=== PATIENT | female | born 1970 | race Caucasian/White ===

== ENCOUNTER 2016-07-21 16:54 | Observation (INO) | payer SELFPAY ==
[~2016-07-21] VITALS: Ht 166.4 cm; Wt 65.4 kg
--- NOTE | 2016-07-21 17:16 | PHYS DOC ---
Adult General Chief Complaint Chief Complaint: CHEST PAIN HPI HPI This 46-year-old lady presents with chest pain.. He states that she's had chest pain off-and-on for the past week. Pain goes from her anterior shoulder to her anterior shoulder at the dental pain across her chest nothing makes it better and nothing makes it worse. These last for minutes daily and comes back every 3 minutes having 3 or 4 episodes of these daily. She states that she had a heart catheterization a year ago after she failed a stress test and echo. She states that the heart catheterization showed no significant blockage and she did not require stents. Review of Systems Review of Systems Constitutional: Denies fever or chills [] Eyes: Denies change in visual acuity, redness, or eye pain [] HENT: Denies nasal congestion or sore throat [] Respiratory: Denies cough or shortness of breath [] Cardiovascular: No additional information not addressed in HPI [] GI: Denies abdominal pain, nausea, vomiting, bloody stools or diarrhea [] : Denies dysuria or hematuria [] Musculoskeletal: Denies back pain or joint pain [] Integument: Denies rash or skin lesions [] Neurologic: Denies headache, focal weakness or sensory changes [] Endocrine: Denies polyuria or polydipsia [] Physical Exam Physical Exam Constitutional: Well developed, well nourished, no acute distress, non-toxic appearance. [] HENT: Normocephalic, atraumatic, bilateral external ears normal, oropharynx moist, no oral exudates, nose normal. [] Eyes: PERRLA, EOMI, conjunctiva normal, no discharge. [] Neck: Normal range of motion, no tenderness, supple, no stridor. [] Cardiovascular:Heart rate regular rhythm, no murmur [] Lungs & Thorax: Bilateral breath sounds clear to auscultation [] Abdomen: Bowel sounds normal, soft, no tenderness, no masses, no pulsatile masses. [] Skin: Warm, dry, no erythema, no rash. [] Back: No tenderness, no CVA tenderness. [] Extremities: No tenderness, no cyanosis, no clubbing, ROM intact, no edema. [] Neurologic: Alert and oriented X 3, normal motor function, normal sensory function, no focal deficits noted. [] Psychologic: Affect normal, judgement normal, mood normal. [] EKG EKG Initial EKG interpretation by Dr. Saavedra [] Radiology/Procedures Radiology/Procedures [] Course & Med Decision Making Course & Med Decision Making Pertinent Labs and Imaging studies reviewed. (See chart for details) Addendum by Dr. Chris Dugan M.D.: I took over care of patient at 1800. Please refer to Dr. Tamayo's documentation for initial encounter. This patient was treated with fentanyl and aspirin for pain. The patient continued to have 7 out of 10 chest pain. Patient has risk factors for possible acute coronary syndrome that include hypertension, hyperlipidemia, and tobacco use. Patient also has family history of heart disease including her biological sister. Patient's lab work was negative. Patient has no follow-up secured at this time. The patient is appropriate for admission under observation care to rule out acute coronary syndrome. I spoke with Dr. Merrill who accepted care of patient in hospital. A consult was placed to Dr. Jiménez of cardiology who will follow patient in hospital. [] Dragon Disclaimer Dragon Disclaimer This chart was dictated in whole or in part using Voice Recognition software in a busy, high-work load, and often noisy Emergency Department environment. It may contain unintended and wholly unrecognized errors or omissions. Departure Departure: Impression: Primary Impression: Chest pain Disposition: ADMITTED INPATIENT Admitting Physician: Tacho Merrill Condition: STABLE AVERY TAMAYO MD Jul 21, 2016 17:16 CHRIS DUGAN MD Jul 21, 2016 19:40
--- NOTE | 2016-07-21 17:37 | EKG ---
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 RI6.01 Unconfirmed report No previous ECG available for comparison Electronically Signed On 07-25-2016 10:37:57 CDT by Skyler Logan
[2016-07-21 17:54] LABS: BASO # 0.1 x10^3/uL (0.0-0.2); BASO % 1 % (0-3); EOS # 0.1 x10^3/uL (0.0-0.7); EOS % 1 % (0-3); HEMATOCRIT 45.4 % (36.0-47.0); HEMOGLOBIN 15.3 g/dL (12.0-15.5); LYMPH # 2.3 x10^3/uL (1.0-4.8); LYMPH % 19 % (24-48); MEAN CORPUSCULAR HEMOGLOBIN 31 pg (25-35); MEAN CORPUSCULAR HGB CONC 34 g/dL (31-37); MEAN CORPUSCULAR VOLUME 92 fL (79-100); MONO # 0.9 x10^3/uL (0.0-1.1); MONO % 8 % (0-9); NEUT # 8.5 x10^3uL (1.8-7.7); NEUT % 71 % (31-73); PLATELET COUNT 204 x10^3/uL (140-400); RED BLOOD COUNT 4.94 x10^6/uL (3.50-5.40); RED CELL DISTRIBUTION WIDTH 13.1 % (11.5-14.5)
[2016-07-21] MEDS ORDERED: IV NORMAL SALINE 1,000ML 1,000 ML IV SCH (18:00)
[2016-07-21 18:06] LABS: ALBUMIN 3.9 g/dL (3.4-5.0); ALBUMIN/GLOBULIN RATIO 1.1 (1.0-1.7); CALCIUM 9.2 mg/dL (8.5-10.1); CREATININE 0.9 mg/dL (0.6-1.0); GFR 67.4; POTASSIUM 3.8 mmol/L (3.5-5.1); TOTAL BILIRUBIN 0.5 mg/dL (0.2-1.0); TOTAL PROTEIN 7.5 g/dL (6.4-8.2)
[2016-07-21] MEDS ORDERED: ONDANSETRON PF 4 MG/2 ML VIAL. IV PRN (18:45)
[2016-07-21] MEDS ORDERED: ACETAMINOPHEN 325 MG TABLET PO PRN (18:45)
[2016-07-21] MEDS ORDERED: ASPIRIN 325 MG TABLET PO ONE (19:45)
[2016-07-21] MEDS: IV NORMAL SALINE 1,000ML 1,000 ML IV SCH (20:08)
[2016-07-21] MEDS: fentaNYL PF 100 MCG/2 ML VIAL IV PRN ×2 (20:09→22:49)
[2016-07-21 20:39] VITALS: BP_SYST 120; BP_SYST 136; BP_DIAS 72; BP_DIAS 89
[2016-07-21] MEDS ORDERED: LISI10TA2 PO (21:16)
[2016-07-21 23:23] VITALS: BP 134/90
[2016-07-22] MEDS: fentaNYL PF 100 MCG/2 ML VIAL IV PRN ×2 (04:26→11:57)
[2016-07-22] MEDS: IV NORMAL SALINE 1,000ML 1,000 ML IV SCH (04:26)
[2016-07-22 04:31] VITALS: BP 102/66
[2016-07-22 06:27] LABS: BASO # 0.1 x10^3/uL (0.0-0.2); BASO % 1 % (0-3); EOS # 0.2 x10^3/uL (0.0-0.7); EOS % 2 % (0-3); HEMATOCRIT 41.5 % (36.0-47.0); HEMOGLOBIN 13.9 g/dL (12.0-15.5); LYMPH # 2.2 x10^3/uL (1.0-4.8); LYMPH % 22 % (24-48); MEAN CORPUSCULAR HEMOGLOBIN 31 pg (25-35); MEAN CORPUSCULAR HGB CONC 33 g/dL (31-37); MEAN CORPUSCULAR VOLUME 93 fL (79-100); MONO # 1.1 x10^3/uL (0.0-1.1); MONO % 10 % (0-9); NEUT # 6.7 x10^3uL (1.8-7.7); NEUT % 65 % (31-73); PLATELET COUNT 184 x10^3/uL (140-400); RED BLOOD COUNT 4.47 x10^6/uL (3.50-5.40); RED CELL DISTRIBUTION WIDTH 13.3 % (11.5-14.5); WHITE BLOOD COUNT 10.3 x10^3/uL (4.0-11.0)
[2016-07-22 06:28] LABS: CALCIUM 7.9 mg/dL (8.5-10.1); CREATININE 0.8 mg/dL (0.6-1.0); GFR 77.2
--- NOTE | 2016-07-22 08:01 | RAD ---
Portable chest, 07/21/2016: History: Chest pain The heart size and pulmonary vascularity are normal. No pulmonary infiltrates are seen. There is no evidence of pleural fluid. IMPRESSION: No acute cardiopulmonary abnormality is detected.
[2016-07-22] MEDS ORDERED: LISINOPRIL 10 MG TABLET PO SCH (09:00)
--- NOTE | 2016-07-22 09:23 | PDOC2 ---
SOBEIDA SAMANIEGO INVASIVE CARDIOLOGIST 07/22/16 0923: CONSULT Date of Admission DATE: 07/22/16 TIME: 09:18 Reason for Consult: cp Problem List Problems Medical Problems: (1) Chest pain Status: Acute History of Present Illness Ms Hayes is a 46 year old female who presented with complaints of chest pain. She reports intermittent chest pain, described as sharp and lasting a few minutes at a time. Discomfort has been progressive over the last week. She reports associated shoulder pain, dyspnea and diaphoresis. She reports increase in discomfort with exertion, deep inspiration and some what with movement. She has taken ibuprofen without improvement but does report some improvement with NTG, which she took at home. She underwent cardiac cath about 1 year ago in [place] which was reportedly normal, however was left on Ranexa which she states helped her symptoms. She reports Ranexa was discontinued during an ER visit about 4 months ago. She reports exercising regularly doing situps and is very active, walking alot at work. She denies palpitations, lightheadedness, congestive symptoms or syncope. She also reports recent weight loss of 40 lbs which allowed her to reduce her antihypertensive medications. 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 Current Medications Current Medications Sodium Chloride 1,000 ml @ 1,000 mls/hr Q1H IV Last administered on 07/21/16 18:10; Start 07/21/16 at 18:00; Stop 07/21/16 at 18:59; Status DC Ondansetron HCl (Zofran) 4 mg PRN Q4HRS PRN IV NAUSEA/VOMITING; Start 07/21/16 at 18:45; Stop 07/22/16 at 18:44 Fentanyl Citrate (Fentanyl 2ml Vial) 50 mcg PRN Q2HR PRN IV PAIN Last administered on 07/22/16 04:26; Start 07/21/16 at 18:45; Stop 07/22/16 at 18:44 Sodium Chloride 1,000 ml @ 100 mls/hr Q10H IV Last administered on 07/22/16 04:26; Start 07/21/16 at 18:43; Stop 07/22/16 at 18:42 Acetaminophen (Tylenol) 650 mg PRN Q4HRS PRN PO FEVER; Start 07/21/16 at 18:45 ; Stop 07/22/16 at 18:44 Aspirin (Caroline Aspirin) 325 mg 1X ONCE PO Last administered on 07/21/16t 20:07 ; Start 07/21/16 at 19:45; Stop 07/21/16 at 19:46; Status DC Lisinopril (Prinivil) 10 mg DAILY PO ; Start 07/22/16 at 09:00 Active Scripts Active Reported Lisinopril 10 Mg Tablet 10 Mg PO DAILY Allergies: Coded Allergies: codeine (Verified Allergy, Unknown, Nausea and Vomiting, 07/21/16) Review of System as per HPI or negative General: Alert, Oriented X3, Cooperative, No acute distress HEENT: Atraumatic, EOMI, Mucous membr. moist/pink, Other (no carotid bruits) Lungs: Clear to auscultation, Normal air movement Heart: Regular rate, Normal S1, Normal S2, Other (no significant murmurs, no gallops, clicks or rubs) Abdomen: Normal bowel sounds, Soft, No tenderness Extremities: No clubbing, No cyanosis, No edema, Normal pulses Neuro: Normal speech, Strength at 5/5 X4 ext Psych/Mental Status: Mental status NL, Mood NL VITALS Vital Signs Date Time Temp Pulse Resp B/P (MAP) Pulse Ox O2 Delivery O2 Flow Rate FiO2 07/22/16 05:00 18 07/22/16 04:31 97.7 71 102/66 (78) 98 Room Air Labs Laboratory Tests Test 07/21/16 17:40 07/21/16 23:50 07/22/16 06:00 White Blood Count 12.0 x10^3/uL (4.0-11.0) 10.3 x10^3/uL (4.0-11.0) Red Blood Count 4.94 x10^6/uL (3.50-5.40) 4.47 x10^6/uL (3.50-5.40) Hemoglobin 15.3 g/dL (12.0-15.5) 13.9 g/dL (12.0-15.5) Hematocrit 45.4 % (36.0-47.0) 41.5 % (36.0-47.0) Mean Corpuscular Volume 92 fL (79-100) 93 fL (79-100) Mean Corpuscular Hemoglobin 31 pg (25-35) 31 pg (25-35) Mean Corpuscular Hemoglobin Concent 34 g/dL (31-37) 33 g/dL (31-37) Red Cell Distribution Width 13.1 % (11.5-14.5) 13.3 % (11.5-14.5) Platelet Count 204 x10^3/uL (140-400) 184 x10^3/uL (140-400) Neutrophils (%) (Auto) 71 % (31-73) 65 % (31-73) Lymphocytes (%) (Auto) 19 % (24-48) 22 % (24-48) Monocytes (%) (Auto) 8 % (0-9) 10 % (0-9) Eosinophils (%) (Auto) 1 % (0-3) 2 % (0-3) Basophils (%) (Auto) 1 % (0-3) 1 % (0-3) Neutrophils # (Auto) 8.5 x10^3uL (1.8-7.7) 6.7 x10^3uL (1.8-7.7) Lymphocytes # (Auto) 2.3 x10^3/uL (1.0-4.8) 2.2 x10^3/uL (1.0-4.8) Monocytes # (Auto) 0.9 x10^3/uL (0.0-1.1) 1.1 x10^3/uL (0.0-1.1) Eosinophils # (Auto) 0.1 x10^3/uL (0.0-0.7) 0.2 x10^3/uL (0.0-0.7) Basophils # (Auto) 0.1 x10^3/uL (0.0-0.2) 0.1 x10^3/uL (0.0-0.2) D-Dimer (Addie) 0.30 mg/L (0.00-0.50) Sodium Level 139 mmol/L (136-145) 143 mmol/L (136-145) Potassium Level 3.8 mmol/L (3.5-5.1) 4.0 mmol/L (3.5-5.1) Chloride Level 105 mmol/L (98-107) 110 mmol/L (98-107) Carbon Dioxide Level 26 mmol/L (21-32) 28 mmol/L (21-32) Anion Gap 8 (6-14) 5 (6-14) Blood Urea Nitrogen 19 mg/dL (7-20) 22 mg/dL (7-20) Creatinine 0.9 mg/dL (0.6-1.0) 0.8 mg/dL (0.6-1.0) Estimated GFR (Cockcroft-Gault) 67.4 77.2 BUN/Creatinine Ratio 21 (6-20) Glucose Level 88 mg/dL (70-99) 88 mg/dL (70-99) Calcium Level 9.2 mg/dL (8.5-10.1) 7.9 mg/dL (8.5-10.1) Total Bilirubin 0.5 mg/dL (0.2-1.0) Aspartate Amino Transf (AST/SGOT) 13 U/L (15-37) Alanine Aminotransferase (ALT/SGPT) 24 U/L (14-59) Alkaline Phosphatase 92 U/L (46-116) Troponin I Quantitative < 0.017 ng/mL (0-0.055) < 0.017 ng/mL (0-0.055) < 0.017 ng/mL (0-0.055) Total Protein 7.5 g/dL (6.4-8.2) Albumin 3.9 g/dL (3.4-5.0) Albumin/Globulin Ratio 1.1 (1.0-1.7) Images sinus rhythm, non specific st/t abn CXR - no acute abnormality Assessment/Plan 1. chest pain with mixed features - CE neg x 3, no acute EKG abnormalities. 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 ? microvascular disease. Resume Ranexa, aspirin, check lipids. Echo and will request cath report. No MPI if normal cath. resume Ranexa pending cath report. If cath normal consider eval for non cardiac causes to include GERD and radiculopathy as outpatient. 2. hypertension - continue home meds. 3. unk lipids - check FLP 4. tobaccoism - cessation encouraged 5. GERD - PPI Problems: ASHLEIGH HAIDER MD 07/22/16 1434: CONSULT Allergies: Coded Allergies: codeine (Verified Allergy, Unknown, Nausea and Vomiting, 07/21/16) Assessment/Plan Patient seen and examined The patient is feeling better this morning. Chest pain. Patient is ruling out for a myocardial infarction. She is feeling significantly better. Reportedly normal catheterization one year ago. We'll complete rule out for myocardial infarction. Continue present medications. Obtain old catheter report. If the patient remains stable and catheterization report shows no significant disease she may be discharged later today from a cardiac viewpoint Hypertension. Under reasonable control. Continue medical treatment. Gastroesophageal reflux disease. Continue medical treatment. Tobacco abuse. Patient counseled to discontinue smoking. Thank you for allowing us to participate in the care of your patient.. Problems: SOBEIDA SAMANIEGO APRN Jul 22, 2016 09:23 ASHLEIGH HAIDER MD Jul 22, 2016 14:34
[2016-07-22] MEDS ORDERED: PANTOPRAZOLE 40 MG TABLET. PO SCH (10:00)
[2016-07-22] MEDS ORDERED: RANOLAZINE 500 MG TAB.ER.12H PO SCH ×2 (10:15→21:00)
[2016-07-22 12:02] VITALS: BP 153/75
[2016-07-22] MEDS ORDERED: OMEP20CA9 PO (12:42)
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
[2016-07-23] MEDS ORDERED: ASPIRIN ENTERIC COATED 81 MG TABLET.DR. PO SCH (08:00)
== END 2016-07-22 13:08 | disposition home or self-care (01) ==
LOC: ER 16:54 → 1 SOUTH 18:46
PROVIDERS: ADMIT Family Medicine; ATTEND Family Medicine
DX: R07.9 Chest pain, unspecified (principal); I10 Essential (primary) hypertension; K21.9 Gastro-esophageal reflux disease without esophagitis; F41.9 Anxiety disorder, unspecified; F43.9 Reaction to severe stress, unspecified; D72.829 Elevated white blood cell count, unspecified; E78.6 Lipoprotein deficiency; F17.210 Nicotine dependence, cigarettes, uncomplicated; F12.90 Cannabis use, unspecified, uncomplicated; Z79.899 Other long term (current) drug therapy; Z86.19 Personal history of other infectious and parasitic diseases; Z82.49 Family history of ischemic heart disease and other diseases of the circulatory system
CPT/HCPCS: 36415; 71010; 80048; 80053; 80061; 84484; 85027; 85379; 93005; 96361; 96374; 96376; 99285; G0378; J3010; J7030; G0379

== ENCOUNTER 2016-12-07 05:23 | Emergency (ER) | payer SELFPAY ==
[~2016-12-07] VITALS: Ht 154.9 cm; Wt 61.7 kg
[~2016-12-07 05:23] MED LIST: LISI10TA2 PO; OMEP20CA9 PO
[2016-12-07] MEDS ORDERED: AMOX500C PO (05:48)
--- NOTE | 2016-12-07 06:08 | PHYS DOC ---
Past History Past Medical History: Anxiety, GERD, Hypertension, Ovarian Cyst Past Surgical History: Hysterectomy, Other Alcohol Use: Occasionally Drug Use: Marijuana Adult General Chief Complaint Chief Complaint: DENTAL PROBLEM HPI HPI Patient is a 46 year old female who presents with swelling. She states it all started Monday with swelling of her jaw. She saw her dentist on Monday and was started on Augmentin yesterday I&D of her job and she states pain and swelling still continues. She states she's having headaches on the right upper side of her jaw. She states very difficult to chew solid foods she's been eating soft foods and drinking liquids. She feels nauseated but she denies any fevers chills. She denies any neck pain, trouble swallowing or changes in her voice. She states she had a cavity placed in this area one year ago. She denies any trauma to the area. Review of Systems Review of Systems Constitutional: Denies fever or chills [] Eyes: Denies change in visual acuity, redness, or eye pain [] HENT: Denies nasal congestion or sore throat [] Respiratory: Denies cough or shortness of breath [] Cardiovascular: No additional information not addressed in HPI [] GI: Denies abdominal pain, nausea, vomiting, bloody stools or diarrhea [] : Denies dysuria or hematuria [] Musculoskeletal: Denies back pain or joint pain [] Integument: Denies rash or skin lesions [] Neurologic: Denies headache, focal weakness or sensory changes [] Endocrine: Denies polyuria or polydipsia [] Allergies Allergies Allergies Coded Allergies Type Severity Reaction Last Updated Verified codeine Allergy Unknown Nausea and Vomiting 12/07/16 Yes Physical Exam Physical Exam Constitutional: Well developed, well nourished, no acute distress, non-toxic appearance. [] HENT: Normocephalic, atraumatic, bilateral external ears normal, oropharynx moist, no oral exudates, nose normal. Swelling with tenderness to palpation in the right lower external jaw. No David angina appreciated, posterior pharynx clear, no stridor noted. Eyes: PERRLA, EOMI, conjunctiva normal, no discharge. [] Neck: Normal range of motion, no tenderness, supple, no stridor. [] Cardiovascular:Heart rate regular rhythm, no murmur [] Lungs & Thorax: Bilateral breath sounds clear to auscultation [] Abdomen: Bowel sounds normal, soft, no tenderness, no masses, no pulsatile masses. [] Skin: Warm, dry, no erythema, no rash. [] Back: No tenderness, no CVA tenderness. [] Extremities: No tenderness, no cyanosis, no clubbing, ROM intact, no edema. [] Neurologic: Alert and oriented X 3, normal motor function, normal sensory function, no focal deficits noted. [] Psychologic: Affect normal, judgement normal, mood normal. [] Current Patient Data Vital Signs Vital Signs Date Time Temp Pulse Resp B/P (MAP) Pulse Ox O2 Delivery O2 Flow Rate FiO2 12/07/16 05:30 98.7 79 20 98 Room Air EKG EKG [] Radiology/Procedures Radiology/Procedures [address] [address] IMAGING REPORT Signed PATIENT: CHARLIE HALLMAN ACCOUNT: [id number] : 1970 LOCATION: ER AGE: 46 SEX: F EXAM STATUS: REG ER ORD. PHYSICIAN: LATISHA LANDON MD REASON: dental abscess PROCEDURE: CT MAXILLOFACIAL W/CONTRAST Indication dental Cinthia. Soft tissue swelling. Assess for potential underlying abscess. Maxillofacial CT was performed. 75 cc of Omnipaque 300 was administered intravenously. Images were reformatted in the coronal and sagittal planes. There is a lucency surrounding a right lower molar tooth compatible with a dental Cinthia. There is moderate adenopathy in the neck compatible with reactive adenopathy. There is considerable soft tissue swelling over the right mandible and cheek. A discrete abscess, amenable to drainage is not seen. The visualized paranasal sinuses appear normal. Note is made of a small amount of air adjacent to the body of the right mandible. This could be air in an early abscess. Air trapped in the buccal mucosal could account for the appearance. IMPRESSION: Lucency surrounding a right lower molar compatible with a dental cinthia. Soft tissue swelling. A discrete abscess amenable to drainage is not seen. PQRS Compliance Statement: One or more of the following individualized dose reduction techniques were utilized for this examination: 1. Automated exposure control 2. Adjustment of the mA and/or kV according to patient size 3. Use of iterative reconstruction technique DICTATED AND SIGNED BY: NORRIS SMILEY MD DATE: 12/07/16809 CC: LATISHA LANDON MD; PCPJAMESON ~ Impressions: Dental infection Course & Med Decision Making Course & Med Decision Making Pertinent Labs and Imaging studies reviewed. (See chart for details) Patient presents with facial swelling and pain. She isn't having signs of airway compromise, David's angina, trismus or other concerning signs. She received IV fluids, morphine and IV clindamycin. She received a CT scan with contrast of her face which did show a dental caries without any discrete abscess amenable to drainage. I spoke with Dr. Burton nurse with [facility] and informed him of the patient's physical exam, CT scan findings, labs and vitals. She spoke with Dr. Burton would like the patient be discharged with clindamycin and they will contact the patient for follow-up. Patient's being discharged with clindamycin 300 mg every 6 hours for the next 10 days. She's also be discharged with [place] when necessary pain. She is instructed not to drive or drink alcohol when taking this medicine. Return precautions given for facial swelling, troubles breathing, change in her voice, uncontrolled nausea vomiting , or other concerns. Patient's agreeable to plan and being discharged in stable condition at this time. Dragon Disclaimer Dragon Disclaimer This chart was dictated in whole or in part using Voice Recognition software in a busy, high-work load, and often noisy Emergency Department environment. It may contain unintended and wholly unrecognized errors or omissions. Departure Departure: Impression: Primary Impression: Dental infection Disposition: 01 HOME, SELF-CARE Condition: STABLE Referrals: PCPJAMESON (PCP) GONZALES EM DMD Patient Instructions: Dental Caries Additional Instructions: The CAT scan did not show any areas of abscess needs to be drained. Your blood work also did not show any acute abnormalities. You felt better after Zofran for nausea and IV fluids. You will also given an IV dose of antibiotics called clindamycin. I spoke with the oral maxillofacial surgeon's office and they will call you today for follow-up appointment. You will need take a different antibiotics for the next 10 days. You can also take [place] which is a narcotic pain medicine for pain and discomfort. Please don't drink alcohol or drive or taking this medicine as it can impair judgment and make you sleepy. For nausea you can take Zofran as directed. Return the ER for uncontrolled nausea, vomiting , uncontrolled pain, trouble swallowing, breathing or changes in your voice, or any other concerns. Scripts Ondansetron (ZOFRAN ODT) 4 Mg Tab.rapdis 1 TAB SL Q8HRS Y for NAUSEA/VOMITING, #8 TAB Prov: LATISHA LANDON MD 12/07/16 Hydrocodone Bit/Acetaminophen (NORCO 5-325 TABLET) 1 Each Tablet 1-2 TAB PO PRN Q6HRS Y for PAIN, #20 TAB 0 Refills Prov: LATISHA LANDON MD 12/07/16 Clindamycin Hcl (CLINDAMYCIN HCL) 300 Mg Capsule 1 CAP PO Q6HRS, #40 CAP Prov: LATISHA LANDON MD 12/07/16 LATISHA LANDON MD Dec 07, 2016 06:08
[2016-12-07] MEDS ORDERED: MORPHINE SULFATE 4 MG/ML DISP.SYRIN. ONE ×3 (06:14→07:47)
[2016-12-07] MEDS ORDERED: IV NORMAL SALINE 1,000ML 1,000 ML IV ONE (06:30)
[2016-12-07] MEDS ORDERED: ONDANSETRON PF 4 MG/2 ML VIAL. IV ONE (06:30)
[2016-12-07] MEDS: MORPHINE SULFATE 4 MG/ML DISP.SYRIN. IV/SQ PRN ×3 (06:36→07:52)
[2016-12-07] MEDS ORDERED: CONTRAST GIVEN MC PRN (06:45)
[2016-12-07] MEDS ORDERED: IOHEXOL 300 MG/ML 75 ML VIAL. ONE (06:57)
[2016-12-07] MEDS ORDERED: IOHEXOL 300 MG/ML 75 ML VIAL. IV ONE (07:00)
[2016-12-07 07:05] LABS: BASO # 0.1 x10^3/uL (0.0-0.2); BASO % 1 % (0-3); EOS # 0.1 x10^3/uL (0.0-0.7); EOS % 1 % (0-3); HEMATOCRIT 45.6 % (36.0-47.0); HEMOGLOBIN 15.7 g/dL (12.0-15.5); LYMPH # 1.4 x10^3/uL (1.0-4.8); LYMPH % 11 % (24-48); MEAN CORPUSCULAR HEMOGLOBIN 31 pg (25-35); MEAN CORPUSCULAR HGB CONC 35 g/dL (31-37); MEAN CORPUSCULAR VOLUME 91 fL (79-100); MONO # 1.2 x10^3/uL (0.0-1.1); MONO % 9 % (0-9); NEUT # 10.8 x10^3uL (1.8-7.7); NEUT % 80 % (31-73); PLATELET COUNT 243 x10^3/uL (140-400); RED CELL DISTRIBUTION WIDTH 12.7 % (11.5-14.5); WHITE BLOOD COUNT 13.5 x10^3/uL (4.0-11.0)
[2016-12-07 07:08] LABS: ALBUMIN 3.7 g/dL (3.4-5.0); ALBUMIN/GLOBULIN RATIO 0.9 (1.0-1.7); CALCIUM 9.2 mg/dL (8.5-10.1); CREATININE 0.8 mg/dL (0.6-1.0); GFR 77.2; POTASSIUM 4.2 mmol/L (3.5-5.1); TOTAL BILIRUBIN 0.5 mg/dL (0.2-1.0); TOTAL PROTEIN 7.8 g/dL (6.4-8.2)
[2016-12-07] MEDS ORDERED: CLINDAMYCIN 900MG PREMIX 50 ML IV ONE ×2 (07:21→07:40)
--- NOTE | 2016-12-07 08:22 | RAD ---
Indication dental Mj. Soft tissue swelling. Assess for potential underlying abscess. Maxillofacial CT was performed. 75 cc of Omnipaque 300 was administered intravenously. Images were reformatted in the coronal and sagittal planes. There is a lucency surrounding a right lower molar tooth compatible with a dental Mj. There is moderate adenopathy in the neck compatible with reactive adenopathy. There is considerable soft tissue swelling over the right mandible and cheek. A discrete abscess, amenable to drainage is not seen. The visualized paranasal sinuses appear normal. Note is made of a small amount of air adjacent to the body of the right mandible. This could be air in an early abscess. Air trapped in the buccal mucosal could account for the appearance. IMPRESSION: Lucency surrounding a right lower molar compatible with a dental mj. Soft tissue swelling. A discrete abscess amenable to drainage is not seen. PQRS Compliance Statement: One or more of the following individualized dose reduction techniques were utilized for this examination: 1. Automated exposure control 2. Adjustment of the mA and/or kV according to patient size 3. Use of iterative reconstruction technique
[2016-12-07 08:40] VITALS: BP 146/82
[2016-12-07] MEDS ORDERED: CLIN300C8 PO (08:47)
[2016-12-07] MEDS ORDERED: HYDR-971 PO (08:47)
[2016-12-07] MEDS ORDERED: ONDA4TAB10 SL (08:47)
== END 2016-12-07 08:58 | disposition home or self-care (01) ==
LOC: ER 05:23
DX: K04.7 Periapical abscess without sinus (principal); K02.9 Dental caries, unspecified; K21.9 Gastro-esophageal reflux disease without esophagitis; I10 Essential (primary) hypertension; F41.9 Anxiety disorder, unspecified; F12.10 Cannabis abuse, uncomplicated; Z88.5 Allergy status to narcotic agent
CPT/HCPCS: 36415; 70487; 80053; 85025; 87040; 96361; 96365; 96375; 96376; 99285; J2270; J2405; J3490; Q9967; J7030

== ENCOUNTER → 2017-05-01 | Outpatient (CLI) | payer OTHER ==
[~2017-05-01] MED LIST changes: +AMOX500C PO; +CLIN300C8 PO; +HYDR-971 PO; +ONDA4TAB10 SL
--- NOTE | 2017-05-01 17:55 | RAD ---
INDICATION: Right upper quadrant and epigastric pain. TECHNIQUE: Ultrasound abdomen complete was performed. No comparison is available. FINDINGS: The visualized pancreas is unremarkable. Aorta is normal caliber. The IVC is patent. The liver is normal in size and echogenicity. Gallbladder is negative, common bile duct is within normal limits at 4 mm. Kidneys are without hydronephrosis or mass. Spleen is not enlarged. IMPRESSION: Normal abdominal ultrasound. Electronically signed by: Milton Gaspar MD (05/01/2017 5:52 PM) [facility]
== END | disposition home or self-care (01) ==
LOC: US 16:57
PROVIDERS: ATTEND Physician Assistant
DX: R10.13 Epigastric pain (principal); R10.11 Right upper quadrant pain; R11.12 Projectile vomiting; R11.0 Nausea
CPT/HCPCS: 76700